=== PATIENT | female | born 1980 | race Caucasian/White ===

== ENCOUNTER 2017-05-17 00:46 | Emergency (ER) | payer OTHER ==
[~2017-05-17] VITALS: Ht 167.6 cm; Wt 80.0 kg
[2017-05-17 00:48] VITALS: BP 128/81; PULSE 102; RESP 16; TEMP 98.6; O2SAT 98
[2017-05-17] MEDS ORDERED: birth control PO (00:56)
--- NOTE | 2017-05-17 02:13 | PD ---
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 She states that she was attempting to use a bag valve mask when it slipped and she sustained a bloody secretions into her face and eyes. She states that she immediately removed her contacts, rinsed her eyes, and washed her face with antibacterial soap. She states that she then returned to the code and then notified her supervisor dehydrogenation of the exposure. She denies any penetrating injuries. No visual changes. No nausea vomiting. She states that she is up-to-date with immunizations. She has been immunized against hepatitis B. She states that the source patient's HIV is unknown but the patient is positive for hepatitis C. PFS Past Medical History Medical History: Denies Significant Hx Diminished Hearing: No Tetanus Vaccination: < 5 Years Influenza Vaccination: Yes ?: Not LMP: 04/21/2017 Past Surgical History Narrative Surgical Tonsils and adenoids Tonsillectomy: Yes (T&A) Social History Alcohol Use: No Tobacco Use: No Substance Use: No Allergies-Medications (Allergen,Severity, Reaction): Coded Allergies: No Known Allergies (Unverified , 05/17/17) Reported Meds & Prescriptions Reported Meds & Active Scripts Active Reported [ control] 1 Tab PO DAILY Review of Systems General / Constitutional: No: Fever Eyes: No: Visual changes HENT: No: Headaches Cardiovascular: No: Chest Pain or Discomfort Respiratory: No: Shortness of Breath Gastrointestinal: No: Abdominal Pain Genitourinary: No: Dysuria Musculoskeletal: No: Pain Skin: No Rash Neurologic: No: Weakness Psychiatric: No: Depression Endocrine: No: Polydipsia Hematologic/Lymphatic: No: Easy Bruising Physical Exam Narrative GENERAL: Well-developed, well-nourished in no acute distress. Nontoxic appearing. HEAD: Normocephalic, atraumatic. EYES: Pupils equal round and reactive. Extraocular motions intact. No scleral icterus. No injection or drainage. ENT: TMs clear without erythema. The external auditory canals clear. Nose: clear . Posterior pharynx is pink and moist. No tonsillar edema or exudate. Uvula midline. Airway patent. NECK: Trachea midline.Supple, nontender, moves head freely. No central bony tenderness or spasm. CARDIOVASCULAR: Regular rate and rhythm without murmurs, gallops, or rubs. RESPIRATORY: Clear to auscultation. Breath sounds equal bilaterally. No wheezes , rales, or rhonchi. GASTROINTESTINAL: Abdomen soft, non-tender, nondistended. No hepato-splenomegaly , or palpable masses. No guarding. EXTREMITIES: No clubbing, cyanosis, or edema. No joint tenderness, effusion, or edema noted. BACK: Nontender without deformity or crepitance. No flank tenderness. Data Data Last Documented VS Vital Signs Date Time Temp Pulse Resp B/P (MAP) Pulse Ox O2 Delivery O2 Flow Rate FiO2 05/17/17 00:48 98.6 102 16 128/81 (97) 98 MDM Medical Decision Making Medical Screen Exam Complete: Yes Emergency Medical Condition: Yes Medical Record Reviewed: Yes Differential Diagnosis Differential diagnosis: Blood exposure, body fluid exposure, contusion, abrasion Narrative Course The patient's exposure is very low risk. Post exposure prophylaxis is not indicated. The body fluid blood exposure packet has been filled out. The source patient's blood will be sent for rapid HIV. At this point the patient is returned to work. She is already irrigated her eyes and washed her face. She'll be notified by the charge nurse of the source patient's HIV status. Diagnosis Primary Impression: Exposure to blood or body fluid Patient Instructions: General Instructions Additional Instructions: Rest. Follow-up with employee med. Return to the ER for problems. Disposition: 01 DISCHARGE HOME Condition: Stable Cody Garvey May 17, 2017 02:12
== END 2017-05-17 02:11 | disposition home or self-care (01) ==
LOC: NEPD 00:46
DX: Z77.21 Contact with and (suspected) exposure to potentially hazardous body fluids (principal)
CPT/HCPCS: 99282